=== PATIENT | male | born 1990 | race African-American/Black ===

== ENCOUNTER 2020-08-11 10:46 | Emergency (ER) | payer MEDICAID ==
[~2020-08-11] VITALS: Ht 177.8 cm; Wt 90.0 kg
[2020-08-11] MEDS ORDERED: TETANUS, DIPHTHERIA, PERTUSSIS VAC/PF 0.5ML (>7YR OLD) IM ONE (11:45)
[2020-08-11] MEDS ORDERED: HYDROCODONE/ACETAMINOPHEN 5/325MG TABLET PO ONE (11:45)
[2020-08-11] MEDS ORDERED: BACITRACIN ZINC OINT UDPKT TOP ONE (11:45)
[2020-08-11] MEDS ORDERED: LIDOCAINE HCL/PF 1% 10 MG/ML 5ML VIAL IJ ONE (11:45)
[2020-08-11 13:57] VITALS: BP 125/93
== END 2020-08-11 13:58 | disposition home or self-care (01) ==
LOC: ER 10:46 → EDBD 10:46 → ER 13:58
DX: S61.212A Laceration without foreign body of right middle finger without damage to nail, initial encounter (principal); Z88.0 Allergy status to penicillin; W18.30XA Fall on same level, unspecified, initial encounter; Y93.89 Activity, other specified; Y92.89 Other specified places as the place of occurrence of the external cause; Y99.8 Other external cause status
CPT/HCPCS: 12002; 73140; 99283; J3490

== ENCOUNTER 2020-08-17 16:33 | Emergency (ER) | payer MEDICAID ==
[~2020-08-17] VITALS: Ht 177.8 cm; Wt 73.0 kg
[2020-08-17 16:41] VITALS: BP 133/74
== END 2020-08-17 19:33 | disposition home or self-care (01) ==
LOC: ER 16:33
DX: Z48.02 Encounter for removal of sutures (principal)
CPT/HCPCS: 99282